=== PATIENT | female | born 1960 | race Two or more races ===

== ENCOUNTER → 2019-11-25 14:00 | Outpatient (BNVA) | payer MEDICAID, SELFPAY | PROVIDERS: Family Provider Family Medicine; Visit Provider Social Worker | DX: F33.2 Major depressive disorder, recurrent severe without psychotic features (principal) | CPT/HCPCS: 90834 ==

== ENCOUNTER → 2019-12-16 10:22 | Outpatient (BNVA) | payer MEDICAID, SELFPAY | PROVIDERS: Family Provider Family Medicine; PCP Family Medicine; Visit Provider Social Worker | DX: F33.2 Major depressive disorder, recurrent severe without psychotic features (principal) | CPT/HCPCS: 90834 ==

== ENCOUNTER → 2019-12-30 14:30 | Outpatient (BNVA) | payer MEDICAID, SELFPAY | PROVIDERS: Family Provider Family Medicine; PCP Family Medicine; Visit Provider Social Worker | DX: F33.2 Major depressive disorder, recurrent severe without psychotic features (principal) | CPT/HCPCS: 90834 ==

== ENCOUNTER → 2020-01-21 08:18 | Outpatient (BNVA) | payer MEDICAID, SELFPAY | PROVIDERS: Family Provider Family Medicine; Visit Provider Nurse Practitioner Psychiatric/Mental Health | DX: F33.2 Major depressive disorder, recurrent severe without psychotic features (principal) | CPT/HCPCS: 99214 ==

== ENCOUNTER → 2020-02-10 08:37 | Outpatient (BNVA) | payer MEDICAID, SELFPAY | PROVIDERS: Family Provider Family Medicine; Visit Provider Social Worker | DX: F33.2 Major depressive disorder, recurrent severe without psychotic features (principal) | CPT/HCPCS: 90832 ==

== ENCOUNTER → 2020-02-15 07:33 | Outpatient (BNVA) | payer MEDICAID, SELFPAY | PROVIDERS: Family Provider Family Medicine; Visit Provider Nurse Practitioner Psychiatric/Mental Health | DX: F33.2 Major depressive disorder, recurrent severe without psychotic features (principal) | CPT/HCPCS: 99214 ==

== ENCOUNTER → 2020-02-29 07:58 | Outpatient (BNVA) | payer MEDICAID, SELFPAY | PROVIDERS: Family Provider Family Medicine; Visit Provider Social Worker Clinical | DX: F33.2 Major depressive disorder, recurrent severe without psychotic features (principal) | CPT/HCPCS: 90834 ==

== ENCOUNTER → 2020-03-09 08:42 | Outpatient (BNVA) | payer MEDICAID, SELFPAY | PROVIDERS: Family Provider Family Medicine; Visit Provider Social Worker Clinical | DX: F33.2 Major depressive disorder, recurrent severe without psychotic features (principal) | CPT/HCPCS: 90834 ==

== ENCOUNTER → 2020-03-15 08:59 | Outpatient (BNVA) | payer MEDICAID, SELFPAY | PROVIDERS: Family Provider Family Medicine; Visit Provider Social Worker Clinical | DX: F33.2 Major depressive disorder, recurrent severe without psychotic features (principal) | CPT/HCPCS: 90834 ==

== ENCOUNTER → 2020-03-16 07:56 | Outpatient (BNVA) | payer MEDICAID, SELFPAY | PROVIDERS: Family Provider Family Medicine; Visit Provider Nurse Practitioner Psychiatric/Mental Health | DX: F33.2 Major depressive disorder, recurrent severe without psychotic features (principal) | CPT/HCPCS: 99214 ==

== ENCOUNTER → 2020-03-23 08:09 | Outpatient (BNVA) | payer MEDICAID, SELFPAY | PROVIDERS: Family Provider Family Medicine; Visit Provider Social Worker Clinical | DX: F33.2 Major depressive disorder, recurrent severe without psychotic features (principal) | CPT/HCPCS: 90834 ==

== ENCOUNTER → 2020-03-30 08:20 | Outpatient (BNVA) | payer MEDICAID, SELFPAY | PROVIDERS: Family Provider Family Medicine; Visit Provider Social Worker Clinical | DX: F33.2 Major depressive disorder, recurrent severe without psychotic features (principal) | CPT/HCPCS: 90834 ==

== ENCOUNTER → 2020-04-05 08:42 | Outpatient (BNVA) | payer MEDICAID, SELFPAY | PROVIDERS: Family Provider Family Medicine; Visit Provider Nurse Practitioner Psychiatric/Mental Health | DX: F33.2 Major depressive disorder, recurrent severe without psychotic features (principal); F41.1 Generalized anxiety disorder | CPT/HCPCS: 99214 ==

== ENCOUNTER → 2020-04-12 08:53 | Outpatient (BNVA) | payer MEDICAID, SELFPAY | PROVIDERS: Family Provider Family Medicine; Visit Provider Social Worker Clinical | DX: F33.2 Major depressive disorder, recurrent severe without psychotic features (principal) | CPT/HCPCS: 90834 ==

== ENCOUNTER → 2020-04-26 10:03 | Outpatient (BNVA) | payer MEDICAID, SELFPAY | PROVIDERS: Family Provider Family Medicine; Visit Provider Social Worker Clinical | DX: F33.2 Major depressive disorder, recurrent severe without psychotic features (principal) | CPT/HCPCS: 90834 ==

== ENCOUNTER → 2020-05-10 09:57 | Outpatient (BNVA) | payer MEDICAID, SELFPAY | PROVIDERS: Family Provider Family Medicine; Visit Provider Social Worker Clinical | DX: F33.2 Major depressive disorder, recurrent severe without psychotic features (principal) | CPT/HCPCS: 90834 ==

== ENCOUNTER → 2020-05-24 09:24 | Outpatient (BNVA) | payer MEDICAID, SELFPAY | PROVIDERS: Family Provider Family Medicine; Visit Provider Social Worker Clinical | DX: F33.2 Major depressive disorder, recurrent severe without psychotic features (principal) | CPT/HCPCS: 90834 ==

== ENCOUNTER → 2020-05-25 07:30 | Outpatient (BNVA) | payer MEDICAID, SELFPAY | PROVIDERS: Family Provider Family Medicine; Visit Provider Nurse Practitioner Psychiatric/Mental Health | DX: F33.2 Major depressive disorder, recurrent severe without psychotic features (principal) | CPT/HCPCS: 99214 ==

== ENCOUNTER → 2020-07-26 07:40 | Outpatient (BNVA) | payer MEDICAID, SELFPAY | PROVIDERS: Family Provider Family Medicine; Visit Provider Nurse Practitioner Psychiatric/Mental Health | DX: F33.2 Major depressive disorder, recurrent severe without psychotic features (principal) | CPT/HCPCS: 99213 ==

== ENCOUNTER → 2020-08-11 12:59 | Outpatient (BNVA) | payer MEDICAID, SELFPAY | PROVIDERS: Family Provider Family Medicine; Visit Provider Nurse Practitioner Psychiatric/Mental Health | DX: F33.2 Major depressive disorder, recurrent severe without psychotic features (principal) | CPT/HCPCS: 80061; 83036 ==

== ENCOUNTER → 2020-12-09 09:15 | Outpatient (BNVA) | payer MEDICAID, SELFPAY | PROVIDERS: Family Provider Family Medicine; Visit Provider Nurse Practitioner Psychiatric/Mental Health | DX: F33.2 Major depressive disorder, recurrent severe without psychotic features (principal) | CPT/HCPCS: 99214 ==

== ENCOUNTER → 2021-01-25 07:44 | Outpatient (BNVA) | payer MEDICAID, SELFPAY | PROVIDERS: Family Provider Family Medicine; Visit Provider Nurse Practitioner Psychiatric/Mental Health | DX: F33.2 Major depressive disorder, recurrent severe without psychotic features (principal) | CPT/HCPCS: 99214 ==

== ENCOUNTER → 2021-03-02 07:15 | Outpatient (BNVA) | payer MEDICAID, SELFPAY | PROVIDERS: Family Provider Family Medicine; Visit Provider Nurse Practitioner Psychiatric/Mental Health | DX: F33.2 Major depressive disorder, recurrent severe without psychotic features (principal); F43.12 Post-traumatic stress disorder, chronic | CPT/HCPCS: 99214 ==

== ENCOUNTER → 2021-04-13 07:18 | Outpatient (BNVA) | payer MEDICAID, SELFPAY | PROVIDERS: Family Provider Family Medicine; Visit Provider Nurse Practitioner Psychiatric/Mental Health | DX: F33.2 Major depressive disorder, recurrent severe without psychotic features (principal); F43.12 Post-traumatic stress disorder, chronic | CPT/HCPCS: 99214 ==

== ENCOUNTER → 2021-05-12 09:26 | Outpatient (BNVA) | payer MEDICAID, SELFPAY | PROVIDERS: Family Provider Family Medicine; Visit Provider Nurse Practitioner Psychiatric/Mental Health | DX: F33.2 Major depressive disorder, recurrent severe without psychotic features (principal); F43.12 Post-traumatic stress disorder, chronic | CPT/HCPCS: 99214 ==

== ENCOUNTER → 2021-08-04 11:30 | Outpatient (BNVA) | payer MEDICAID, SELFPAY | PROVIDERS: Family Provider Family Medicine; Visit Provider Nurse Practitioner Psychiatric/Mental Health | DX: F33.2 Major depressive disorder, recurrent severe without psychotic features (principal); F43.12 Post-traumatic stress disorder, chronic | CPT/HCPCS: 99214 ==

== ENCOUNTER → 2021-10-27 07:37 | Outpatient (BNVA) | payer MEDICAID, SELFPAY | PROVIDERS: Family Provider Family Medicine; Visit Provider Nurse Practitioner Psychiatric/Mental Health | DX: F33.2 Major depressive disorder, recurrent severe without psychotic features (principal); F43.12 Post-traumatic stress disorder, chronic | CPT/HCPCS: 99214 ==

== ENCOUNTER → 2024-04-22 10:57 | Outpatient (BNVA) | payer MEDICARE, MEDICAID, SELFPAY | PROVIDERS: Family Provider Family Medicine; PCP Nurse Practitioner Family; Visit Provider Nurse Practitioner Family | DX: E05.90 Thyrotoxicosis, unspecified without thyrotoxic crisis or storm (principal); Z90.89 Acquired absence of other organs; Z79.899 Other long term (current) drug therapy; E55.9 Vitamin D deficiency, unspecified; Z13.6 Encounter for screening for cardiovascular disorders; R11.2 Nausea with vomiting, unspecified; D64.9 Anemia, unspecified | CPT/HCPCS: 80053; 80061; 81003; 82306; 82607; 82728; 83036; 83550; 84439; 84443; 85025 ==

== ENCOUNTER 2025-02-06 16:14 | Emergency (ER) | payer MEDICARE, MEDICAID, SELFPAY ==
[2025-02-06 16:17] VITALS: BP 142/89; PULSE 96; RESP 16; TEMP 36.7; O2SAT 98; BMI 30.2
--- NOTE | 2025-02-06 16:27 | XRR_ITS ---
PROCEDURE INFORMATION: Exam: XR Right Shoulder Exam date and time: 02/06/2025 4:42 PM Age: 64 years old Clinical indication: Injury or trauma; Fall; Blunt trauma (contusions or hematomas); Shoulder; Right TECHNIQUE: Imaging protocol: Radiologic exam of the right shoulder. Views: 2 or more views. COMPARISON: No relevant prior studies available. FINDINGS: Bones/joints: Normal. Soft tissues: Normal. XR/XR shoulder RT min 2V* [id number] IMPRESSION: No acute findings.
--- NOTE | 2025-02-06 17:32 | W.ED.EXTPRO ---
HPI - Extremity Problem General: Chief complaint: Extremity Injury, Upper Stated complaint: right shoulder area pain Time Seen by Provider: 02/06/25 16:30 History of Present Illness: Patient is a pleasant 64-year-old female that hurt her arm approximately 1 month ago, stretching it out while walking her dog. She complains of pain with rotation. Associated symptoms: Deny chest pain or fever(s) Related Data Home Medications ?Medication ?Instructions ?Recorded ?Confirmed thyroid (pork) 90 mg tablet 90 mg PO DAILY 10/30/19 05/05/24 ([facility]) magnesium hydroxide 1,200 mg tablet mg PO DAILY 01/24/21 05/05/24 Previous Rx's ?Medication ?Instructions ?Recorded melatonin 3 mg capsule 3 mg PO .bedtime PRN sleep #30 caps 08/04/21 protriptyline 10 mg tablet 30 mg (3 x 10 mg) PO BID #180 tabs 04/04/22 ondansetron HCl 4 mg tablet 4 mg PO Q8H PRN nausea and 04/22/24 vomiting 5 days #20 tabs Allergies Allergy/AdvReac Type Severity Reaction Status Date / Time bupropion (From Wellbutrin) Allergy Severe red dye: Verified 05/05/24 11:48 itches- heart palpitates ceftriaxone (From Rocephin) Allergy Intermediate hives Verified 05/05/24 11:48 red dye Allergy Intermediate hives Verified 05/05/24 11:48 monosodium glutamate AdvReac Severe Hot, Verified 06/29/24 10:02 Flushed, Heart rate elevates cephalexin (From Keflex) AdvReac Intermediate Rash Verified 05/05/24 11:48 codeine AdvReac Intermediate Rash Verified 05/05/24 11:48 latex AdvReac Intermediate Breaks out Verified 05/05/24 11:48 Penicillins AdvReac Intermediate Rash Verified 05/05/24 11:48 poison homero extract AdvReac Intermediate Rash Verified 05/05/24 11:48 wool AdvReac Intermediate Itching Verified 05/05/24 11:48 Review of Systems Const: Denies: fever(s) or chills ENMT: Denies: throat pain or hoarseness Card: Denies: chest pain or palpitations Resp: Denies: dyspnea or productive cough Musc: Reports: extremity pain, joint pain and joint stiffness; Denies: neck pain, back pain, extremity swelling, joint swelling, joint redness or joint warmth Neuro: Denies: headache(s) or numbness in extremities PFSH ED PFSH: Medical History (Updated 02/06/25 @ 17:36 by JENNIFER Hwang) Fatigue Hypothyroid Anemia Nausea and vomiting Encounter for screening for cardiovascular disorders Vitamin D deficiency Medication management Chronic post-traumatic stress disorder Major depressive disorder, recurrent severe without psychotic features Surgical History (Updated 04/22/24 @ 10:25 by NITIN Pablo) History of tonsillectomy at age 3 1/2 Family History Other Cancer Diabetes Social History Smoking and tobacco/nicotine status: never used tobacco/nicotine Quit status (tobacco/nicotine): has quit using Year quit tobacco: 40 years ago Second hand smoke exposure: Yes Alcohol intake: never Substance/Drug Use: never Adopted: No Caregiver/support person: No Lives independently: Yes Household members: family Housing: Apartment Marital status: / Marital status details: in 1992, has been 2 more times but both Number of children: 2 Number of grandchildren: 4 Highest education level completed: Bachelor's Degree Education level details: business service: No Current occupational status: disabled Current occupational exposures/hazards: No Pets and animals: Yes Pets & animals: dog(s) and horse(s) Leisure activites: reading and other Leisure activities details: watch TV Sexually active: No Do you think of yourself as: Straight/Heterosexual Current gender identity: Female Daisha/Mandaeism: Religious Special daisha needs: No Agree to transfusion: Yes Female Reproductive History: Para: 2 Spontaneous abortions: No Date of menopause: 11/10/12 Physical Exam Const: GENERAL APPEARANCE: cooperative and comfortable HENMT: COMMON NORMALS: normocephalic, atraumatic and hearing grossly normal bilaterally HEAD & SCALP: normocephalic and atraumatic Neck/C-Spine: COMMON NORMALS: full ROM and no lymphadenopathy Chest: COMMONS NORMALS: normal inspection of the chest and normal palpation of entire chest wall Resp: COMMON NORMALS: normal respiratory effort and No retractions Cardio: COMMON NORMALS: regular rate and regular rhythm RATE: regular rate RHYTHM: regular rhythm GI: COMMON NORMALS: Normal to inspection, nondistended, normoactive bowel sounds present and Soft to palpation PALPATION: Yes Soft to palpation : COMMON NORMALS: Yes no CVA tenderness BLADDER/KIDNEY EXAM: Yes no CVA tenderness Back/Pelvis: COMMON NORMALS: no CVA tenderness Extremity: COMMON NORMALS: normal to inspection and capillary refill normal RIGHT UPPER EXTREMITY: Yes shoulder joint (empty can test positive at 90 degrees laterally) Right shoulder: Yes Right shoulder joint ROM exam and Yes Right shoulder joint special tests Right shoulder special tests: Empty can test: Positive (laterally) Psych: COMMON NORMALS: mental status grossly normal and Normal thought process present THOUGHT PROCESS: Normal thought process present Course Vital Signs: Vital signs: Vital Signs Temperature 98.1 F 02/06/25 16:17 Pulse Rate 96 02/06/25 16:17 Respiratory Rate 16 02/06/25 16:17 Blood Pressure 142/89 02/06/25 16:17 Pulse Oximetry 98 02/06/25 16:17 Oxygen Delivery Me thod Room Air 02/06/25 16:17 MDM - Extremity (Nontraumatic) Medical Decision Making Patient was seen and examined, x-ray obtained. Empty can test is significant for rotator cuff injury. Did not get to exit interview patient and updated her on results since she decided to leave. I did instruct her on all of my concerns, following up with primary care, and potentially orthopedics for possible injection. Lab Data Radiology Impressions Shoulder X-Ray 02/06/25 16:27 IMPRESSION: No acute findings. All radiology interpretation(s) finalized by discharge Discharge Plan Discharge Patient Disposition: Home Clinical Impression: Rotator cuff (capsule) sprain Qualifiers: Encounter type: initial encounter Laterality: right Qualified Code(s): S43.421A - Sprain of right rotator cuff capsule, initial encounter Condition: Stable Prescriptions: No Action thyroid (pork) [[facility]] 90 mg tablet 90 mg PO DAILY melatonin 3 mg capsule 3 mg PO .bedtime PRN (Reason: sleep) Qty: 30 6RF Rx Instructions: Take one capsule at bedtime as needed for sleep magnesium hydroxide 1,200 mg tablet PO DAILY ondansetron HCl 4 mg tablet 4 mg PO Q8H PRN (Reason: nausea and vomiting) 5 Days Qty: 20 0RF protriptyline 10 mg tablet 30 mg PO BID Qty: 180 6RF Rx Instructions: Take three tablets twice per day Discharge Orders: Discharge ED (Routine); Ordered 02/06/25 Ordered By: Kristin Davenport Referrals: Paco Joiner MD [Physician, Orthopedics] Colt Cruz FNP [Primary Care Provider, [facility]] Discharge Diet: Usual diet Discharge Activity: Limit activity as instructed Patient Instructions: Rotator Cuff Injury (ED) Activity Restrictions/Additional Instructions: Ice, elevate, rest Tylenol and Ibuprofen for pain Follow up with orthopedic Print Language: Venezuelan Coding Level of Care Code ED [place] Strip for Rebekah Weaver
== END 2025-02-06 17:41 | disposition home or self-care (01) ==
PROVIDERS: Emergency Provider Physician Assistant; PCP Nurse Practitioner Family
DX: S43.421A Sprain of right rotator cuff capsule, initial encounter (principal); Z87.891 Personal history of nicotine dependence; X58.XXXA Exposure to other specified factors, initial encounter
CPT/HCPCS: 73030; 99283